=== PATIENT | female | born 1970 | race Caucasian/White ===

== ENCOUNTER 2019-05-16 08:13 | Emergency (ER) | payer MEDICARE, MEDICAID ==
[~2019-05-16] VITALS: Ht 154.9 cm; Wt 100.0 kg
[~2019-05-16 08:13] MED LIST: BENZ1TAB7 GT; CEPH-569 PO; CLAR10 PO; DOCU-138 PO; OMEP20CA4 PO; QUET400T4 PO; TOPA200 PO; ZIPR20CA2 PO; ZIPR60CA2 PO; ZOLP10TA2 PO
[2019-05-16] MEDS ORDERED: DONE5TAB7 MT (08:44)
[2019-05-16] MEDS ORDERED: CARI3CAP MT (08:45)
[2019-05-16] MEDS ORDERED: TEMA15CA5 MT (08:45)
[2019-05-16] MEDS ORDERED: DIVA-18 MT (08:45)
[2019-05-16] MEDS ORDERED: PRAM1TAB6 PO (08:47)
[2019-05-16] MEDS ORDERED: LORA-249 MT (08:49)
[2019-05-16] MEDS ORDERED: TRAZ-251 MT (08:49)
[2019-05-16 10:34] VITALS: BP 113/58
== END 2019-05-16 11:04 | disposition home or self-care (01) ==
LOC: ER 08:13
DX: T50.991A Poisoning by other drugs, medicaments and biological substances, accidental (unintentional), initial encounter (principal); K21.9 Gastro-esophageal reflux disease without esophagitis; F20.9 Schizophrenia, unspecified; I10 Essential (primary) hypertension; Q90.9 Down syndrome, unspecified; Y92.89 Other specified places as the place of occurrence of the external cause
CPT/HCPCS: 99281

== ENCOUNTER 2019-11-01 10:33 | Emergency (ER) | payer MEDICARE, MEDICAID ==
[~2019-11-01] VITALS: Ht 157.5 cm; Wt 104.0 kg
[~2019-11-01 10:33] MED LIST changes: -BENZ1TAB7 GT; +CARI3CAP MT; -CEPH-569 PO; +DIVA-18 MT; +DONE5TAB7 MT; +LORA-249 MT; +PRAM1TAB6 PO; -QUET400T4 PO; +TEMA15CA5 MT; +TRAZ-251 MT; -ZOLP10TA2 PO
[2019-11-01 13:05] VITALS: BP 100/64
[2019-11-01] MEDS ORDERED: IBUPROFEN 600MG TABLET PO STA (13:05)
[2019-11-01] MEDS ORDERED: MAGNESIUM CITRATE 300ML SOLUTION PO ONE (14:30)
[2019-11-01 14:35] LABS: CHLORIDE 109 mEq/L (98-107)
[2019-11-01 14:36] LABS: BASOPHILS % 0.7 % (0.0-2.0); EOSINOPHILS % 2.1 % (0.0-5.0); HEMATOCRIT. 39.6 % (36.0-48.0); HEMOGLOBIN. 13.6 g/dL (12.0-16.0); LYMPHOCYTES % 36.4 % (20.0-50.0); MEAN CORPUSCULAR HEMOGLOBIN 31.6 pg (28.0-32.0); MEAN CORPUSCULAR VOLUME 91.9 fL (81.0-99.0); MEAN PLATELET VOLUME 7.7 fl (7.4-10.4); MONOCYTES % 6.4 % (2.0-8.0); NEUTROPHILS % 54.4 % (40.0-76.0); PLATELET 178 x1000/uL (130-400); RED BLOOD CELL COUNT 4.31 mill/uL (4.2-5.4); RED CELL DISTRIBUTION WIDTH 14.3 % (11.6-14.6)
[2019-11-01 15:00] LABS: CLARITY URINE CLEAR (CLEAR); COLOR URINE YELLOW (YELLOW); KETONES URINE NEGATIVE (NEGATIVE); LEUKOCYTE ESTERASE URINE 2+ (NEGATIVE); NITRITE URINE NEGATIVE (NEGATIVE); OCCULT BLOOD URINE NEGATIVE (NEGATIVE); PROTEIN URINE NEGATIVE (NEGATIVE); SPECIFIC GRAVITY URINE 1.015 (1.005-1.030); UROBILINOGEN URINE 0.2 E.U./dL (0.2-1.0)
[2019-11-01] MEDS ORDERED: CEFTRIAXONE SODIUM 1 G/VIAL IM ONE (15:15)
== END 2019-11-01 15:51 | disposition home or self-care (01) ==
LOC: ER 10:33
DX: N39.0 Urinary tract infection, site not specified (principal); K21.9 Gastro-esophageal reflux disease without esophagitis; I10 Essential (primary) hypertension; Z79.899 Other long term (current) drug therapy
CPT/HCPCS: 36415; 74018; 80053; 81003; 83690; 85025; 96372; 99284; J0696

== ENCOUNTER 2022-07-22 17:44 | Emergency (ER) | payer MEDICARE, MEDICAID ==
[~2022-07-22] VITALS: Ht 157.5 cm; Wt 89.0 kg
[2022-07-22 17:50] VITALS: BP 140/88
== END 2022-07-22 22:50 | disposition home or self-care (01) ==
LOC: ER 17:44
DX: R46.2 Strange and inexplicable behavior (principal); T38.3X5A Adverse effect of insulin and oral hypoglycemic [antidiabetic] drugs, initial encounter; I10 Essential (primary) hypertension; Z79.899 Other long term (current) drug therapy; Z86.59 Personal history of other mental and behavioral disorders; Z98.890 Other specified postprocedural states; Y92.9 Unspecified place or not applicable
CPT/HCPCS: 82962; 99281